=== PATIENT | male | born 1980 | race African-American/Black ===

== ENCOUNTER 2016-11-24 21:34 | Emergency (ER) | payer MEDICAID ==
[~2016-11-24] VITALS: Ht 180.3 cm; Wt 82.0 kg
[2016-11-24 22:27] VITALS: BP 170/112
== END 2016-11-25 06:50 | disposition left against medical advice (07) ==
LOC: ER 11-25 06:48
DX: R07.9 Chest pain, unspecified (principal); Z53.21 Procedure and treatment not carried out due to patient leaving prior to being seen by health care provider
CPT/HCPCS: 93005

== ENCOUNTER 2018-09-29 21:55 | Emergency (ER) | payer MEDICAID ==
[~2018-09-29] VITALS: Ht 180.3 cm; Wt 77.3 kg
[2018-09-30] MEDS ORDERED: DIPHENHYDRAMINE 50MG/ML VIAL IV ONE (01:00)
[2018-09-30] MEDS ORDERED: METOCLOPRAMIDE HCL 10MG/2ML VIAL IV ONE (01:00)
[2018-09-30 01:19] LABS: BASOPHILS % 0.7 % (0.0-2.0); EOSINOPHILS % 3.5 % (0.0-5.0); HEMATOCRIT. 46.5 % (42.0-52.0); HEMOGLOBIN. 16.1 g/dL (14.0-18.0); LYMPHOCYTES % 23.1 % (20.0-50.0); MEAN CORPUSCULAR HEMOGLOBIN 31.1 pg (28.0-32.0); MEAN CORPUSCULAR VOLUME 89.9 fL (80.0-94.0); MEAN PLATELET VOLUME 7.3 fl (7.4-10.4); MONOCYTES % 11.7 % (2.0-8.0); PLATELET 239 x1000/uL (130-400); RED BLOOD CELL COUNT 5.17 mill/uL (4.7-6.1); RED CELL DISTRIBUTION WIDTH 12.9 % (11.6-14.6)
[2018-09-30 01:25] LABS: CHLORIDE 108 mEq/L (98-107)
[2018-09-30 01:28] LABS: PARTIAL THROMBOPLASTIN TIME 27.7 sec (23.4-31.0); PROTHROMBIN TIME 10.1 sec (9.6-11.0)
[2018-09-30] MEDS ORDERED: DEXAMETHASONE 4MG/ML 1ML VIAL IV ONE (01:45)
[2018-09-30] MEDS ORDERED: SODIUM CHLORIDE 0.9% 1,000 ML IV ONE (01:45)
[2018-09-30] MEDS ORDERED: KETOROLAC 15MG/ML VIAL IV ONE (01:45)
[2018-09-30 03:34] VITALS: BP 119/85
== END 2018-09-30 03:36 | disposition home or self-care (01) ==
LOC: ER 21:55
DX: R51 Headache (principal); F17.200 Nicotine dependence, unspecified, uncomplicated; F12.10 Cannabis abuse, uncomplicated; I10 Essential (primary) hypertension; Z90.49 Acquired absence of other specified parts of digestive tract; Z98.890 Other specified postprocedural states; Z91.011 Allergy to milk products; Z91.030 Bee allergy status
CPT/HCPCS: 36415; 70450; 80053; 85025; 85610; 85730; 96374; 96375; 99284; J1100; J1200; J1885; J2765; J7030; Z7610

== ENCOUNTER 2018-12-30 10:39 | Emergency (ER) | payer MEDICAID ==
[~2018-12-30] VITALS: Ht 180.3 cm; Wt 85.0 kg
[2018-12-30 10:46] VITALS: BP 147/93
[2018-12-30] MEDS ORDERED: BACITRACIN ZINC OINT UDPKT TOP ONE (11:15)
[2018-12-30] MEDS ORDERED: TETANUS, DIPHTHERIA, PERTUSSIS VAC/PF 0.5ML (>7YR OLD) IM ONE (11:15)
== END 2018-12-30 11:30 | disposition home or self-care (01) ==
LOC: ER 10:48
DX: S61.411A Laceration without foreign body of right hand, initial encounter (principal); S51.811A Laceration without foreign body of right forearm, initial encounter; I10 Essential (primary) hypertension; F12.10 Cannabis abuse, uncomplicated; F17.200 Nicotine dependence, unspecified, uncomplicated; Z90.49 Acquired absence of other specified parts of digestive tract; Z98.890 Other specified postprocedural states; Z91.030 Bee allergy status; Z91.011 Allergy to milk products; W18.40XA Slipping, tripping and stumbling without falling, unspecified, initial encounter; Y93.89 Activity, other specified; Y92.098 Other place in other non-institutional residence as the place of occurrence of the external cause; Y99.8 Other external cause status
CPT/HCPCS: 90471; 90715; 99283

== ENCOUNTER 2019-03-19 21:40 | Emergency (ER) | payer MEDICARE, MEDICAID ==
[~2019-03-19] VITALS: Ht 180.3 cm; Wt 86.0 kg
[2019-03-20 00:10] VITALS: BP 131/80
== END 2019-03-20 00:05 | disposition home or self-care (01) ==
LOC: ER 22:09
DX: L02.01 Cutaneous abscess of face (principal); L02.31 Cutaneous abscess of buttock
CPT/HCPCS: 99283

== ENCOUNTER 2020-03-08 15:25 | Emergency (ER) | payer MEDICARE, MEDICAID ==
[~2020-03-08] VITALS: Ht 180.3 cm; Wt 88.0 kg
[2020-03-08 15:45] VITALS: BP 143/72
[2020-03-08] MEDS ORDERED: ONDANSETRON HCL 4MG/2ML INJ IV STA (17:08)
[2020-03-08] MEDS ORDERED: MAGNESIUM/ALUMINUM HYDROXIDE/SIMETHICONE 30ML UDC PO ONE (17:15)
[2020-03-08] MEDS ORDERED: FAMOTIDINE 20MG/2ML VIAL IV ONE (17:15)
[2020-03-08] MEDS ORDERED: KETOROLAC 15MG/ML VIAL IV ONE (17:15)
[2020-03-08] MEDS ORDERED: SODIUM CHLORIDE 0.9% 1,000 ML IV ONE (17:15)
== END 2020-03-08 17:45 | disposition left against medical advice (07) ==
LOC: ER 15:25 → CANBEDREQ 21:14
DX: R19.7 Diarrhea, unspecified (principal); R10.9 Unspecified abdominal pain; I10 Essential (primary) hypertension; J45.909 Unspecified asthma, uncomplicated; Z90.49 Acquired absence of other specified parts of digestive tract; Z91.011 Allergy to milk products
CPT/HCPCS: 93005; 99283; J7030

== ENCOUNTER 2022-07-04 09:47 | Inpatient (IN) | payer MEDICARE, MEDICAID ==
[~2022-07-04] VITALS: Ht 180.3 cm; Wt 73.9 kg
[2022-07-04 10:51] LABS: BG BASE EXCESS -5.9 mmol/L (-2.0-2.0); BG DEOXYHEMOGLOBIN 1.8 % (0.0-5.0); BG FRACTION INSPIRED OXYGEN 21; BG METHEMOGLOBIN 0.3 % (0.0-1.5); BG OXYGEN SATURATION 98.2 % (92.0-98.5); BG OXYHEMOGLOBIN 96.9 % (94.0-97.0); BG PCO2 17.7 mmHg (35.0-45.0); BG PH 7.516 (7.350-7.450); BG PO2 99.6 mmHg (75.0-100.0); BG SAMPLE SITE LEFT BRACHIAL; BG TOTAL HEMOGLOBIN 14.9 g/dL (12.0-18.0); BG VENT MODE ROOM AIR
[2022-07-04 12:26] LABS: HEMATOCRIT. 44.1 % (42.0-52.0); HEMOGLOBIN. 14.4 g/dL (14.0-18.0); MEAN CORPUSCULAR HEMOGLOBIN 28.9 pg (28.0-32.0); MEAN CORPUSCULAR VOLUME 88.4 fL (80.0-94.0); PLATELET 241 x1000/uL (130-400); RED BLOOD CELL COUNT 4.99 mill/uL (4.7-6.1); RED CELL DISTRIBUTION WIDTH 17.8 % (11.6-14.6)
[2022-07-04 12:30] LABS: CHLORIDE 106 mEq/L (98-107)
[2022-07-04] MEDS ORDERED: CEFTRIAXONE 1 G PREMIX 50 ML IV ONE (13:00)
[2022-07-04] MEDS ORDERED: AZITHROMYCIN 500MG/250ML 250 ML IV ONE (13:00)
[2022-07-04 13:09] LABS: PLATELET ESTIMATE NORMAL
[2022-07-04] MEDS ORDERED: ENOXAPARIN 60MG/0.6ML SYR SUBCUT ONE (13:30)
[2022-07-04] MEDS ORDERED: DILTIAZEM HCL 5MG/ML 5ML VIAL IV ONE (13:30)
[2022-07-04] MEDS ORDERED: LEVOFLOXACIN 750MG PREMIX 150 ML IV ONE (13:30)
[2022-07-04] MEDS ORDERED: DIPHENHYDRAMINE 50MG/ML VIAL IV ONE (13:45)
[2022-07-04] MEDS ORDERED: HYDROCODONE/ACETAMINOPHEN 5/325MG TABLET PO PRN (14:30)
[2022-07-04] MEDS ORDERED: ONDANSETRON HCL 4MG/2ML INJ IV PRN (14:30)
[2022-07-04] MEDS ORDERED: CLONIDINE 0.1MG TABLET PO PRN (14:30)
[2022-07-04] MEDS ORDERED: DOCUSATE SODIUM 100MG CAPSULE PO PRN (14:30)
[2022-07-04] MEDS ORDERED: ACETAMINOPHEN 325MG TABLET PO PRN ×2 (14:30)
[2022-07-04] MEDS ORDERED: IPRATROPIUM/ALBUTEROL 0.5-3(2.5)MG/3ML NEB HHN PRN (14:30)
[2022-07-04] MEDS ORDERED: NALOXONE HCL 0.4MG/ML VIAL IV PRN (14:45)
[2022-07-04 15:55] LABS: *AMPHETAMINES SCREEN URINE NEGATIVE (NEGATIVE); *BARBITURATES SCREEN URINE NEGATIVE (NEGATIVE); *BENZODIAZEPINES SCREEN URINE NEGATIVE (NEGATIVE); *COCAINE SCREEN URINE NEGATIVE (NEGATIVE); CANNABINOID URINE SCREEN NEGATIVE (NEGATIVE); METHADONE URINE SCREEN NEGATIVE (NEGATIVE); OPIATES URINE SCREEN NEGATIVE (NEGATIVE); PHENCYCLIDINE URINE SCREEN NEGATIVE (NEGATIVE)
[2022-07-04] MEDS: FUROSEMIDE 40MG/4ML VIAL IV SCH (16:29)
[2022-07-04] MEDS ORDERED: DIPHENHYDRAMINE 50MG/ML VIAL IV NR (16:45)
[2022-07-04] MEDS ORDERED: METOPROLOL TARTRATE 25MG TABLET PO SCH (21:00)
[2022-07-05] VITALS (8 sets, daily range): BP systolic 51–163; BP diastolic 26–91
[2022-07-05] MEDS: METOPROLOL TARTRATE 25MG TABLET PO SCH ×3 (02:17→21:48)
[2022-07-05] MEDS ORDERED: SODIUM CHLORIDE 0.9% 500 ML IV NR (05:00)
[2022-07-05 06:03] LABS: BASOPHILS % 0.4 % (0.0-2.0); HEMATOCRIT. 44.1 % (42.0-52.0); HEMOGLOBIN. 14.6 g/dL (14.0-18.0); LYMPHOCYTES % 17.2 % (20.0-50.0); MEAN CORPUSCULAR HEMOGLOBIN 29.1 pg (28.0-32.0); MEAN CORPUSCULAR VOLUME 87.8 fL (80.0-94.0); MEAN PLATELET VOLUME 8.2 fl (7.4-10.4); MONOCYTES % 12.5 % (2.0-8.0); NEUTROPHILS % 69.9 % (40.0-76.0); PLATELET 247 x1000/uL (130-400); RED BLOOD CELL COUNT 5.02 mill/uL (4.7-6.1); RED CELL DISTRIBUTION WIDTH 17.1 % (11.6-14.6)
[2022-07-05] MEDS: FUROSEMIDE 40MG/4ML VIAL IV SCH (09:47)
[2022-07-05] MEDS: LORAZEPAM 0.5MG TABLET PO PRN ×2 (09:47→20:30)
[2022-07-05 09:51] LABS: T4 FREE 1.13 ng/dL (0.76-1.46)
[2022-07-05] MEDS ORDERED: ADENOSINE 3 MG/ML 2ML VIAL IV NR (12:15)
[2022-07-05] MEDS ORDERED: AMIODARONE HCL 900 MG in DEXT 5% WATER 482 ML IV PRN ×2 (12:30→17:15)
[2022-07-05] MEDS ORDERED: ENOXAPARIN 80MG/0.8ML SYR SUBCUT NR ×2 (13:00→18:00)
[2022-07-05] MEDS ORDERED: ESMOLOL 2500MG PREMIX 250 ML IV PRN (14:00)
[2022-07-05] MEDS ORDERED: FLUC200T51 MT (15:12)
[2022-07-05] MEDS ORDERED: EMTR1TAB11 MT (15:12)
[2022-07-05] MEDS ORDERED: CARV12.545 MT (15:12)
[2022-07-05] MEDS ORDERED: ATOR20TA65 MT (15:12)
[2022-07-05] MEDS ORDERED: DOLU50TA MT (15:12)
[2022-07-05] MEDS ORDERED: ALBUTEROL (15:12)
[2022-07-05] MEDS ORDERED: LISI-186 MT (15:12)
[2022-07-05] MEDS ORDERED: PYRIDOXINE (15:12)
[2022-07-05] MEDS ORDERED: ATOVAQUONE (15:12)
[2022-07-05] MEDS ORDERED: RIFABUTIN (15:12)
[2022-07-05] MEDS ORDERED: [UNRECOGNIZED DRUG - OTHER] (15:12)
[2022-07-05] MEDS ORDERED: ISONIAZID (15:12)
[2022-07-05] MEDS ORDERED: ETHAMBUTOL (15:12)
[2022-07-05] MEDS ORDERED: ASPI-1497 MT (15:12)
[2022-07-05] MEDS ORDERED: DOLUTEGRAVIR (15:12)
[2022-07-05] MEDS ORDERED: ALBUTEROL (0.083%) 2.5MG/3ML NEB HHN PRN (15:15)
[2022-07-05] MEDS ORDERED: IPRATROPIUM BROMIDE (0.02%) 0.5MG/2.5ML NEB HHN PRN (15:15)
[2022-07-05 17:27] LABS: INR 1.2; PROTHROMBIN TIME 13.1 sec (9.6-11.0)
[2022-07-05 18:00] LABS: HEPATITIS B SURFACE ANTIGEN NEGATIVE
[2022-07-05] MEDS ORDERED: IOHEXOL-350 100 ML BOTTLE ONE (19:02)
[2022-07-05] MEDS: TRUVADA PO SCH ×2 (21:31→21:33)
[2022-07-05] MEDS: TIVICAY 50MG TABLET PO SCH (21:34)
[2022-07-05] MEDS: ATORVASTATIN CALCIUM 20MG TABLET PO SCH (21:49)
[2022-07-05] MEDS: ESMOLOL 2500MG PREMIX 250 ML IV PRN (23:18)
[2022-07-06] VITALS (87 sets, daily range): BP systolic 71–156; BP diastolic 22–101
[2022-07-06] MEDS: ESMOLOL 2500MG PREMIX 250 ML IV PRN ×8 (04:28→22:22)
[2022-07-06 05:22] LABS: BASOPHILS % 0.1 % (0.0-2.0); HEMATOCRIT. 43.3 % (42.0-52.0); HEMOGLOBIN. 14.3 g/dL (14.0-18.0); LYMPHOCYTES % 14.8 % (20.0-50.0); MEAN CORPUSCULAR HEMOGLOBIN 29.4 pg (28.0-32.0); MEAN CORPUSCULAR VOLUME 88.7 fL (80.0-94.0); MEAN PLATELET VOLUME 8.3 fl (7.4-10.4); MONOCYTES % 11.2 % (2.0-8.0); NEUTROPHILS % 73.9 % (40.0-76.0); PLATELET 221 x1000/uL (130-400); RED BLOOD CELL COUNT 4.89 mill/uL (4.7-6.1); RED CELL DISTRIBUTION WIDTH 17.9 % (11.6-14.6)
[2022-07-06] MEDS ORDERED: ENOXAPARIN 80MG/0.8ML SYR SUBCUT SCH (06:00)
[2022-07-06] MEDS: ASPIRIN 81MG TABLET PO SCH (08:40)
[2022-07-06] MEDS: FUROSEMIDE 40MG/4ML VIAL IV SCH (08:40)
[2022-07-06] MEDS: METOPROLOL TARTRATE 25MG TABLET PO SCH (08:40)
[2022-07-06 09:07] LABS: ABSOLUTE LYMPHOCYTES 1.2 x10E3/uL (0.7-3.1); ABSOLUTE MONOCYTES 0.6 x10E3/uL (0.1-0.9); ABSOLUTE NEUTROPHILS 4.1 x10E3/uL (1.4-7.0); BASOPHILS 0 % (Not Estab.); HEMATOCRIT 49.4 % (37.5-51.0); HEMOGLOBIN 15.5 g/dL (13.0-17.7); IMMATURE GRANULOCYTES 1 % (Not Estab.); LYMPHOCYTES 21 % (Not Estab.); MEAN CORPUSCULAR HEMOGLOBIN 28.3 pg (26.6-33.0); MEAN CORPUSCULAR HGB CONC. 31.4 g/dL (31.5-35.7); MEAN CORPUSCULAR VOLUME 90 fL (79-97); MONOCYTES 10 % (Not Estab.); NEUTROPHILS 68 % (Not Estab.); PLATELETS 286 x10E3/uL (150-450); RBC 5.47 x10E6/uL (4.14-5.80); RED CELL DISTRIBUTION WIDTH 15.9 % (11.6-15.4)
[2022-07-06] MEDS: TIVICAY 50MG TABLET PO SCH (09:11)
[2022-07-06 10:07] LABS: % CD 3 POS. LYMPHOCYTES 80.6 % (57.5-86.2); % CD 4 POS. LYMPHOCYTES 17.1 % (30.8-58.5); % CD 8 POS. LYMPH 63.7 % (12.0-35.5); ABSOLUTE CD 3 967 /uL (622-2402); ABSOLUTE CD 4 HELPER 205 /uL (359-1519); ABSOLUTE CD 8 SUPPRESSOR 764 /uL (109-897); CD4/CD8 RATIO 0.27 (0.92-3.72)
[2022-07-06] MEDS ORDERED: SODIUM POLYSTYRENE SULFONATE 15 G/60 ML BOT PO NR (10:15)
[2022-07-06] MEDS ORDERED: DIGOXIN 500MCG/2ML AMP IV NR (10:15)
[2022-07-06] MEDS ORDERED: DILTIAZEM HCL 125 MG in DEXT 5% WATER 100 ML IV PRN (13:45)
[2022-07-06] MEDS: ATORVASTATIN CALCIUM 20MG TABLET PO SCH (21:06)
[2022-07-07] VITALS (67 sets, daily range): BP systolic 76–151; BP diastolic 23–165
[2022-07-07] MEDS: ESMOLOL 2500MG PREMIX 250 ML IV PRN ×3 (01:07→06:44)
[2022-07-07 05:51] LABS: CHLORIDE 104 mEq/L (98-107)
[2022-07-07 05:52] LABS: BASOPHILS % 0.2 % (0.0-2.0); EOSINOPHILS % 0.1 % (0.0-5.0); HEMATOCRIT. 40.9 % (42.0-52.0); HEMOGLOBIN. 13.5 g/dL (14.0-18.0); MEAN CORPUSCULAR HEMOGLOBIN 29.2 pg (28.0-32.0); MEAN CORPUSCULAR VOLUME 88.1 fL (80.0-94.0); MEAN PLATELET VOLUME 8.3 fl (7.4-10.4); MONOCYTES % 4.5 % (2.0-8.0); NEUTROPHILS % 81.2 % (40.0-76.0); PLATELET 160 x1000/uL (130-400); RED BLOOD CELL COUNT 4.64 mill/uL (4.7-6.1); RED CELL DISTRIBUTION WIDTH 17.6 % (11.6-14.6)
[2022-07-07 06:04] LABS: CREATINE KINASE 156 IU/L (39-308); PHOSPHORUS 2.4 mg/dL (2.5-4.9)
[2022-07-07] MEDS: ASPIRIN 81MG TABLET PO SCH (09:00)
[2022-07-07] MEDS: ENOXAPARIN 80MG/0.8ML SYR SUBCUT SCH ×2 (09:00→21:00)
[2022-07-07] MEDS: TRUVADA PO SCH (09:00)
[2022-07-07] MEDS: TIVICAY 50MG TABLET PO SCH (09:00)
[2022-07-07] MEDS ORDERED: HEPARIN SODIUM 1,000 UNIT/1ML VIAL IV ONE (09:07)
[2022-07-07] MEDS ORDERED: PROPOFOL 200MG/20ML VIAL IV ONE (09:24)
[2022-07-07] MEDS ORDERED: MIDAZOLAM HCL 2 MG/2 ML VIAL ONE (09:24)
[2022-07-07] MEDS ORDERED: LIDOCAINE HCL 1% 20ML VIAL (Pyxis) INJ ONE (09:40)
[2022-07-07] MEDS ORDERED: PHENYLEPHRINE HCL 10 MG/ML 1ML (IV VIAL) IV ONE ×2 (09:57→09:58)
[2022-07-07] MEDS ORDERED: SUCCINYLCHOLINE CHLORIDE 200MG/10ML IV ONE (10:41)
[2022-07-07] MEDS ORDERED: ROCURONIUM BROMIDE 10MG/ML VIAL 5ML IV ONE (10:42)
[2022-07-07] MEDS ORDERED: ONDANSETRON HCL 4MG/2ML INJ ONE (10:45)
[2022-07-07] MEDS ORDERED: DEXAMETHASONE 4MG/ML 1ML VIAL ONE (10:45)
[2022-07-07] MEDS ORDERED: FENTANYL CITRATE/PF 50MCG/ML 2ML VIAL ONE (10:45)
[2022-07-07 11:23] LABS: BG BASE EXCESS -18.3 mmol/L (-2.0-2.0); BG CARBOXYHEMOGLOBIN 0.2 % (0.5-1.5); BG DEOXYHEMOGLOBIN 0.3 % (0.0-5.0); BG HCO3 ACT 9.2 mmol/L (22.0-26.0); BG OXYGEN SATURATION 99.7 % (92.0-98.5); BG OXYHEMOGLOBIN 99.5 % (94.0-97.0); BG PCO2 27.6 mmHg (35.0-45.0); BG PO2 376.3 mmHg (75.0-100.0); BG SAMPLE SITE ALINE; BG TOTAL HEMOGLOBIN 15.4 g/dL (12.0-18.0); BG VENT MODE CATH LAB
[2022-07-07] MEDS ORDERED: SODIUM BICARBONATE 8.4% 1 MEQ/ML 50ML SYR IV ONE ×2 (11:33→12:09)
[2022-07-07] MEDS ORDERED: DOPAMINE 400MG/250ML PREMIX 250 ML IV ONE (11:34)
[2022-07-07] MEDS ORDERED: ETOMIDATE 2MG/ML 10ML VIAL IV ONE (11:39)
[2022-07-07] MEDS ORDERED: ATROPINE SULFATE 1MG/10ML SYR IV PRN (12:00)
[2022-07-07 12:09] LABS: BG BASE EXCESS -10.6 mmol/L (-2.0-2.0); BG CARBOXYHEMOGLOBIN 0.6 % (0.5-1.5); BG DEOXYHEMOGLOBIN 0.1 % (0.0-5.0); BG FRACTION INSPIRED OXYGEN 100; BG HCO3 ACT 14.2 mmol/L (22.0-26.0); BG METHEMOGLOBIN 0.3 % (0.0-1.5); BG OXYGEN SATURATION 99.9 % (92.0-98.5); BG PCO2 29.4 mmHg (35.0-45.0); BG PH 7.302 (7.350-7.450); BG PO2 535.9 mmHg (75.0-100.0); BG SAMPLE SITE ALINE; BG TOTAL HEMOGLOBIN 15.5 g/dL (12.0-18.0)
[2022-07-07] MEDS ORDERED: FENTANYL 2500MCG/250ML PMX 250 ML IV ONE (13:15)
[2022-07-07] MEDS ORDERED: FENTANYL 2500MCG/250ML PMX 250 ML IV PRN (13:15)
[2022-07-07] MEDS: PROPOFOL 10MG/ML 100ML 100 ML IV PRN ×3 (13:35→22:07)
[2022-07-07 14:31] LABS: BG BASE EXCESS -4.8 mmol/L (-2.0-2.0); BG DEOXYHEMOGLOBIN 1.7 % (0.0-5.0); BG FRACTION INSPIRED OXYGEN 40; BG HCO3 ACT 17.8 mmol/L (22.0-26.0); BG METHEMOGLOBIN 0.3 % (0.0-1.5); BG OXYGEN SATURATION 98.3 % (92.0-98.5); BG PCO2 27.5 mmHg (35.0-45.0); BG PO2 116.9 mmHg (75.0-100.0); BG SAMPLE SITE ALINE; BG TOTAL HEMOGLOBIN 15.4 g/dL (12.0-18.0); BG VENT MODE VENT - AC
[2022-07-07] MEDS ORDERED: SODIUM BICARBONATE 150 MEQ in DEXTROSE 5% WATER 1,000 ML IV SCH (15:00)
[2022-07-07] MEDS: IPRATROPIUM/ALBUTEROL 0.5-3(2.5)MG/3ML NEB HHN SCH (15:24)
[2022-07-07] MEDS ORDERED: NOREPINEPHRINE 8 MG in DEXT 5% WATER 242 ML IV PRN (16:00)
[2022-07-07] MEDS: AZTREONAM 2 GM in DEXT 5% WATER 100 ML IV SCH (17:45)
[2022-07-07] MEDS: DOPAMINE 400MG/250ML PREMIX 250 ML IV PRN (20:00)
[2022-07-07] MEDS: METRONIDAZOLE 500 MG PREMIX 100 ML IV SCH (20:08)
[2022-07-07] MEDS: ATORVASTATIN CALCIUM 20MG TABLET PO SCH (20:08)
[2022-07-08] VITALS (69 sets, daily range): BP systolic 36–179; BP diastolic 24–103
[2022-07-08] MEDS: IPRATROPIUM/ALBUTEROL 0.5-3(2.5)MG/3ML NEB HHN SCH ×2 (00:32→08:35)
[2022-07-08] MEDS ORDERED: MIDAZOLAM 100MG/100ML PMX 100 ML IV PRN (02:30)
[2022-07-08] MEDS ORDERED: MIDAZOLAM HCL 100 MG in SODIUM CHLORIDE 0.9% 100 ML IV PRN (02:30)
[2022-07-08] MEDS: PROPOFOL 10MG/ML 100ML 100 ML IV PRN (02:35)
[2022-07-08] MEDS: METRONIDAZOLE 500 MG PREMIX 100 ML IV SCH ×3 (03:22→21:29)
[2022-07-08] MEDS: DOPAMINE 400MG/250ML PREMIX 250 ML IV PRN ×2 (03:22→08:59)
[2022-07-08 05:34] LABS: BASOPHILS % 0.1 % (0.0-2.0); HEMATOCRIT. 45.4 % (42.0-52.0); HEMOGLOBIN. 14.9 g/dL (14.0-18.0); LYMPHOCYTES % 9.6 % (20.0-50.0); MEAN CORPUSCULAR VOLUME 88.5 fL (80.0-94.0); MEAN PLATELET VOLUME 8.4 fl (7.4-10.4); MONOCYTES % 9.7 % (2.0-8.0); NEUTROPHILS % 80.6 % (40.0-76.0); PLATELET 163 x1000/uL (130-400); RED BLOOD CELL COUNT 5.12 mill/uL (4.7-6.1); RED CELL DISTRIBUTION WIDTH 18.3 % (11.6-14.6)
[2022-07-08] MEDS: AZTREONAM 2 GM in DEXT 5% WATER 100 ML IV SCH ×2 (05:41→17:47)
[2022-07-08 05:52] LABS: PHOSPHORUS 3.1 mg/dL (2.5-4.9)
[2022-07-08 08:09] LABS: BG BASE EXCESS -4.4 mmol/L (-2.0-2.0); BG CARBOXYHEMOGLOBIN 0.9 % (0.5-1.5); BG DEOXYHEMOGLOBIN 0.9 % (0.0-5.0); BG HCO3 ACT 17.9 mmol/L (22.0-26.0); BG METHEMOGLOBIN 0.4 % (0.0-1.5); BG OXYGEN SATURATION 99.1 % (92.0-98.5); BG OXYHEMOGLOBIN 97.8 % (94.0-97.0); BG PCO2 26.9 mmHg (35.0-45.0); BG PH 7.442 (7.350-7.450); BG SAMPLE SITE ALINE; BG TOTAL HEMOGLOBIN 15.7 g/dL (12.0-18.0); BG VENT MODE VENT - AC
[2022-07-08] MEDS: ASPIRIN 81MG TABLET PO SCH (09:00)
[2022-07-08] MEDS: TRUVADA PO SCH (09:00)
[2022-07-08] MEDS: TIVICAY 50MG TABLET PO SCH (09:00)
[2022-07-08 09:49] LABS: BG BASE EXCESS -6.4 mmol/L (-2.0-2.0); BG CARBOXYHEMOGLOBIN 0.9 % (0.5-1.5); BG DEOXYHEMOGLOBIN 1.3 % (0.0-5.0); BG FRACTION INSPIRED OXYGEN 35; BG HCO3 ACT 17.8 mmol/L (22.0-26.0); BG METHEMOGLOBIN 0.4 % (0.0-1.5); BG OXYGEN SATURATION 98.7 % (92.0-98.5); BG OXYHEMOGLOBIN 97.4 % (94.0-97.0); BG PCO2 32.2 mmHg (35.0-45.0); BG PH 7.361 (7.350-7.450); BG PO2 136.1 mmHg (75.0-100.0); BG SAMPLE SITE ALINE; BG TOTAL HEMOGLOBIN 15.1 g/dL (12.0-18.0); BG VENT MODE VENT - CPAP
[2022-07-08] MEDS: ENOXAPARIN 80MG/0.8ML SYR SUBCUT SCH ×2 (11:02→20:20)
[2022-07-08] MEDS ORDERED: LORAZEPAM 2MG/ML CPJ IV NR (16:15)
[2022-07-08] MEDS ORDERED: FLUMAZENIL 0.1 MG/ML 5ML VIAL IV NR (16:25)
[2022-07-09] VITALS (31 sets, daily range): BP systolic 64–150; BP diastolic 28–108
[2022-07-09] MEDS: IPRATROPIUM/ALBUTEROL 0.5-3(2.5)MG/3ML NEB HHN SCH ×3 (00:27→16:27)
[2022-07-09] MEDS: METRONIDAZOLE 500 MG PREMIX 100 ML IV SCH ×3 (04:50→21:41)
[2022-07-09 05:06] LABS: BASOPHILS % 0.1 % (0.0-2.0); EOSINOPHILS % 0.2 % (0.0-5.0); HEMATOCRIT. 37.9 % (42.0-52.0); HEMOGLOBIN. 12.3 g/dL (14.0-18.0); LYMPHOCYTES % 9.8 % (20.0-50.0); MEAN CORPUSCULAR HEMOGLOBIN 28.7 pg (28.0-32.0); MEAN CORPUSCULAR VOLUME 88.4 fL (80.0-94.0); MEAN PLATELET VOLUME 8.6 fl (7.4-10.4); MONOCYTES % 11.1 % (2.0-8.0); NEUTROPHILS % 78.8 % (40.0-76.0); PLATELET 130 x1000/uL (130-400); RED BLOOD CELL COUNT 4.28 mill/uL (4.7-6.1); RED CELL DISTRIBUTION WIDTH 18.3 % (11.6-14.6)
[2022-07-09 05:13] LABS: CHLORIDE 111 mEq/L (98-107)
[2022-07-09] MEDS: AZTREONAM 2 GM in DEXT 5% WATER 100 ML IV SCH ×2 (06:32→19:02)
[2022-07-09] MEDS ORDERED: IPRATROPIUM/ALBUTEROL 0.5-3(2.5)MG/3ML NEB HHN PRN (08:30)
[2022-07-09] MEDS: ASPIRIN 81MG TABLET PO SCH (09:48)
[2022-07-09] MEDS: TIVICAY 50MG TABLET PO SCH (09:49)
[2022-07-09] MEDS: ENOXAPARIN 80MG/0.8ML SYR SUBCUT SCH (09:49)
[2022-07-09] MEDS: TRUVADA PO SCH (09:50)
[2022-07-09] MEDS ORDERED: ALBUTEROL (0.083%) 2.5MG/3ML NEB HHN PRN (18:15)
[2022-07-09] MEDS ORDERED: IPRATROPIUM BROMIDE (0.02%) 0.5MG/2.5ML NEB HHN PRN (18:15)
[2022-07-09] MEDS ORDERED: POTASSIUM PHOS,M-BASIC-D-BASIC 20 MMOL in DEXT 5% WATER 243.3333 ML IV NR (19:30)
[2022-07-09] MEDS: CARVEDILOL 3.125 MG TABLET PO SCH (21:43)
[2022-07-10] VITALS (12 sets, daily range): BP systolic 127–147; BP diastolic 76–99
[2022-07-10] MEDS: IPRATROPIUM BROMIDE (0.02%) 0.5MG/2.5ML NEB HHN SCH ×2 (00:09→18:02)
[2022-07-10] MEDS: ALBUTEROL (0.083%) 2.5MG/3ML NEB HHN SCH ×2 (00:10→18:02)
[2022-07-10] MEDS: METRONIDAZOLE 500 MG PREMIX 100 ML IV SCH ×3 (03:43→21:59)
[2022-07-10] MEDS: AZTREONAM 2 GM in DEXT 5% WATER 100 ML IV SCH ×2 (05:15→18:17)
[2022-07-10 08:13] LABS: BASOPHILS % 0.1 % (0.0-2.0); HEMATOCRIT. 38.8 % (42.0-52.0); HEMOGLOBIN. 12.6 g/dL (14.0-18.0); LYMPHOCYTES % 7.4 % (20.0-50.0); MEAN CORPUSCULAR VOLUME 89.1 fL (80.0-94.0); MEAN PLATELET VOLUME 8.5 fl (7.4-10.4); MONOCYTES % 11.9 % (2.0-8.0); NEUTROPHILS % 80.6 % (40.0-76.0); PLATELET 121 x1000/uL (130-400); RED BLOOD CELL COUNT 4.35 mill/uL (4.7-6.1); RED CELL DISTRIBUTION WIDTH 18.6 % (11.6-14.6)
[2022-07-10 08:17] LABS: BG BASE EXCESS -3.7 mmol/L (-2.0-2.0); BG CARBOXYHEMOGLOBIN 1.1 % (0.5-1.5); BG DEOXYHEMOGLOBIN 3.1 % (0.0-5.0); BG FRACTION INSPIRED OXYGEN 21; BG HCO3 ACT 19.4 mmol/L (22.0-26.0); BG METHEMOGLOBIN 0.2 % (0.0-1.5); BG OXYGEN SATURATION 96.9 % (92.0-98.5); BG OXYHEMOGLOBIN 95.6 % (94.0-97.0); BG PCO2 29.7 mmHg (35.0-45.0); BG PH 7.432 (7.350-7.450); BG PO2 86.5 mmHg (75.0-100.0); BG SAMPLE SITE RIGHT RADIAL; BG TOTAL HEMOGLOBIN 13.4 g/dL (12.0-18.0); BG VENT MODE ROOM AIR
[2022-07-10 09:21] LABS: CHLORIDE 109 mEq/L (98-107)
[2022-07-10 09:41] LABS: PHOSPHORUS 2.8 mg/dL (2.5-4.9)
[2022-07-10] MEDS: ENOXAPARIN 80MG/0.8ML SYR SUBCUT SCH (10:08)
[2022-07-10] MEDS: ASPIRIN 81MG TABLET PO SCH (10:08)
[2022-07-10] MEDS: TRUVADA PO SCH (10:09)
[2022-07-10] MEDS: TIVICAY 50MG TABLET PO SCH (10:09)
[2022-07-10] MEDS: CARVEDILOL 3.125 MG TABLET PO SCH ×2 (10:09→22:00)
[2022-07-10] MEDS ORDERED: TRAZODONE HCL 50MG TABLET PO SCH (21:00)
[2022-07-11] VITALS (8 sets, daily range): BP systolic 127–157; BP diastolic 89–102
[2022-07-11] MEDS: IPRATROPIUM BROMIDE (0.02%) 0.5MG/2.5ML NEB HHN SCH ×2 (00:29→09:25)
[2022-07-11] MEDS: METRONIDAZOLE 500 MG PREMIX 100 ML IV SCH ×2 (04:34→11:08)
[2022-07-11] MEDS: AZTREONAM 2 GM in DEXT 5% WATER 100 ML IV SCH (05:57)
[2022-07-11] MEDS: ASPIRIN 81MG TABLET PO SCH (09:05)
[2022-07-11] MEDS: CARVEDILOL 3.125 MG TABLET PO SCH (09:05)
[2022-07-11] MEDS: TIVICAY 50MG TABLET PO SCH (09:06)
[2022-07-11] MEDS: TRUVADA PO SCH (09:06)
[2022-07-11] MEDS: ENOXAPARIN 80MG/0.8ML SYR SUBCUT SCH (09:06)
[2022-07-11 09:15] LABS: BASOPHILS % 0.2 % (0.0-2.0); EOSINOPHILS % 0.6 % (0.0-5.0); HEMATOCRIT. 41.9 % (42.0-52.0); HEMOGLOBIN. 13.7 g/dL (14.0-18.0); LYMPHOCYTES % 9.5 % (20.0-50.0); MEAN CORPUSCULAR HEMOGLOBIN 29.1 pg (28.0-32.0); MEAN CORPUSCULAR VOLUME 89.3 fL (80.0-94.0); MEAN PLATELET VOLUME 8.6 fl (7.4-10.4); MONOCYTES % 13.5 % (2.0-8.0); NEUTROPHILS % 76.2 % (40.0-76.0); PLATELET 130 x1000/uL (130-400); RED BLOOD CELL COUNT 4.69 mill/uL (4.7-6.1)
[2022-07-11 09:25] LABS: CHLORIDE 110 mEq/L (98-107)
[2022-07-11] MEDS: ALBUTEROL (0.083%) 2.5MG/3ML NEB HHN SCH (09:25)
[2022-07-11 09:34] LABS: PHOSPHORUS 2.2 mg/dL (2.5-4.9)
[2022-07-11] MEDS ORDERED: APIX5TAB PO (12:30)
[2022-07-11] MEDS ORDERED: TRAZ-251 PO (12:30)
[2022-07-11] MEDS ORDERED: COR3 PO (12:30)
[2022-07-11] MEDS ORDERED: DILTIAZEM HCL 120MG CAPSULE ER 24HR PO SCH (14:15)
[2022-07-11] MEDS ORDERED: DOXY100C5 MT (16:31)
[2022-07-11] MEDS ORDERED: APIXABAN 5 MG TABLET PO SCH (17:00)
[2022-07-15 04:12] LABS: *HIV-1 RNA BY PCR <40 copies/mL (.)
== END 2022-07-11 15:32 | disposition home or self-care (01) | DRG 273 ==
LOC: ER 09:47 → MICUSO 13:56 → EDBEDREQ 14:08 → EDBEDREQTM 14:08 → 5EST 07-05 14:58 → MICUNO 07-05 22:55 → 5EST 07-09 16:00
PROVIDERS: ADMIT Internal Medicine; ATTEND Internal Medicine
PROC: 02HV33Z Insertion of Infusion Device into Superior Vena Cava, Percutaneous Approach (ICD-10-PCS; 2022-07-05)
PROC: B548ZZA Ultrasonography of Superior Vena Cava, Guidance (ICD-10-PCS; 2022-07-05)
PROC: 04HY32Z Insertion of Monitoring Device into Lower Artery, Percutaneous Approach (ICD-10-PCS; principal; 2022-07-07)
PROC: 4A0234Z Measurement of Cardiac Electrical Activity, Percutaneous Approach (ICD-10-PCS; 2022-07-07)
PROC: B246ZZZ Ultrasonography of Right and Left Heart (ICD-10-PCS; 2022-07-07)
PROC: 5A1935Z Respiratory Ventilation, Less than 24 Consecutive Hours (ICD-10-PCS; 2022-07-07)
PROC: 0BH17EZ Insertion of Endotracheal Airway into Trachea, Via Natural or Artificial Opening (ICD-10-PCS; 2022-07-07)
PROC: 02583ZZ Destruction of Conduction Mechanism, Percutaneous Approach (ICD-10-PCS; 2022-07-07)
PROC: 02K83ZZ Map Conduction Mechanism, Percutaneous Approach (ICD-10-PCS; 2022-07-07)
PROC: 04HK33Z Insertion of Infusion Device into Right Femoral Artery, Percutaneous Approach (ICD-10-PCS; 2022-07-07)
DX: I48.3 Typical atrial flutter (principal); I50.23 Acute on chronic systolic (congestive) heart failure; J18.9 Pneumonia, unspecified organism; J96.00 Acute respiratory failure, unspecified whether with hypoxia or hypercapnia; K72.00 Acute and subacute hepatic failure without coma; R57.0 Cardiogenic shock; N17.9 Acute kidney failure, unspecified; E87.4 Mixed disorder of acid-base balance; F33.1 Major depressive disorder, recurrent, moderate; A15.0 Tuberculosis of lung; I42.0 Dilated cardiomyopathy; I11.0 Hypertensive heart disease with heart failure; Z20.822 Contact with and (suspected) exposure to COVID-19; J45.909 Unspecified asthma, uncomplicated; E78.00 Pure hypercholesterolemia, unspecified; D72.821 Monocytosis (symptomatic); E87.5 Hyperkalemia; I25.10 Atherosclerotic heart disease of native coronary artery without angina pectoris; Z82.49 Family history of ischemic heart disease and other diseases of the circulatory system; Z88.1 Allergy status to other antibiotic agents; Z21 Asymptomatic human immunodeficiency virus [HIV] infection status; D64.9 Anemia, unspecified; F41.1 Generalized anxiety disorder; I48.91 Unspecified atrial fibrillation
CPT/HCPCS: 31500; 36415; 36573; 36600; 71045; 71250; 76770; 80048; 80053; 80305; 82375; 82550; 82805; 83735; 83880; 84100; 84145; 84439; 84443; 84478; 84481; 84484; 85025; 85379; 86359; 86360; 86803; 87070; 87340; 87426; 87536; 87804; 93005; 93306; 93653; 93662; 94002; 94003; 94640; 94664; 99291; C1725; C1730; C1731; C1732; C1893; C9803; J0153; J0282; J0330; J0456; J0696; J1100; J1160; J1200; J1265; J1644; J1650; J1940; J1956; J2250; J2370; J2405; J2704; J3010; J3490; J7060; J7070; Q9967; A4315